=== PATIENT | female | born 1950 | race Caucasian/White ===

== ENCOUNTER 2017-09-27 23:36 | Observation (INO) | payer MEDICARE ==
--- NOTE | 2017-09-27 23:59 | EDM.PDOC ---
ED HPI GENERAL MEDICAL PROBLEM - General Chief Complaint: Chest Pain Stated Complaint: PT HAS CHEST PAINS Time Seen by Provider: 09/27/17 23:43 - History of Present Illness INITIAL COMMENTS - FREE TEXT/NARRATIVE: HISTORY AND PHYSICAL: History of present illness: Patient is 67-year-old female with history of valvular heart disease he also had coronary artery stent placed proximally 1 month prior to arrival presents with concern of left-sided chest tightness started approximately 4 hours prior to arrival without associated shortness of breath palpitations diaphoresis nausea or vomiting she states this is different in quality to the pain she had prior with her stent placement. Review of systems: As per history of present illness and below otherwise all systems reviewed and negative. Past medical history: As per history of present illness and as reviewed below otherwise noncontributory. Surgical history: As per history of present illness and as reviewed below otherwise noncontributory. Social history: No reported history of drug or alcohol abuse. Family history: As per history of present illness and as reviewed below otherwise noncontributory. Physical exam: HEENT: Atraumatic, normocephalic, pupils reactive, negative for conjunctival pallor or scleral icterus, mucous membranes moist, throat clear, neck supple, nontender, trachea midline. Lungs: Clear to auscultation, breath sounds equal bilaterally, chest nontender. Heart: S1S2, regular, negative for clicks, rubs, or JVD. Abdomen: Soft, nondistended, nontender. Negative for masses or hepatosplenomegaly. Negative for costovertebral tenderness. Pelvis: Stable nontender. Genitourinary: Deferred. Rectal: Deferred. Extremities: Atraumatic, negative for cords or calf pain. Neurovascular unremarkable. Neuro: Awake, alert, oriented. Cranial nerves II through XII unremarkable. Cerebellum unremarkable. Motor and sensory unremarkable throughout. Exam nonfocal. Diagnostics: CBC CMP troponin PT/INR chest x-ray EKG Therapeutics: IV O2 monitor aspirin 324 mg nitroglycerin sublingual Impression: #1 chest pain #2 history of coronary artery disease #3 history of valvular heart disease Definitive disposition and diagnosis as appropriate pending reevaluation and review of above. chest Pain Score (Numeric/FACES): 7 - Related Data Allergies Allergy/AdvReac Type Severity Reaction Status Date / Time No Known Allergies Allergy Verified 09/27/17 23:45 Home Meds: Home Meds Aspirin 81 mg PO DAILY 09/27/17 [History] Levothyroxine [Synthroid] 100 mcg PO DAILY 09/27/17 [History] ED ROS GENERAL - Review of Systems Review Of Systems: ROS reveals no pertinent complaints other than HPI. ED EXAM, GENERAL - Physical Exam Exam: See Below (See dictation) Course - Vital Signs Last Recorded V/S: Last Vital Signs Temp 36.0 C 09/27/17 23:41 Pulse 60 09/28/17 00:32 Resp 18 09/28/17 00:32 BP 102/60 09/28/17 00:32 Pulse Ox 98 09/28/17 00:32 - Orders/Labs/Meds Orders: Active Orders 24 hr Category Date Time Status EKG Documentation Completion [RC] STAT Care 09/28/17 00:10 Active Chest 1V Frontal [CR] Stat Exams 09/28/17 00:09 Taken Nitroglycerin [Nitrostat] Med 09/28/17 00:11 Active 0.4 mg SL Q5M PRN Medication Orders Nitroglycerin (Nitrostat) 0.4 mg SL Q5M PRN PRN Reason: Chest Pain Last Admin: 09/28/17 00:23 Dose: 0.4 mg Labs: Laboratory Tests 09/27/17 09/27/17 09/27/17 Range/Units 23:50 23:50 23:50 WBC 5.50 (4.0-11.0) K/uL RBC 4.25 L (4.30-5.90) M/uL Hgb 13.9 (12.0-16.0) g/dL Hct 39.9 (36.0-46.0) % MCV 93.9 (80.0-98.0) fL MCH 32.7 H (27.0-32.0) pg MCHC 34.8 (31.0-37.0) g/dL RDW Std Deviation 44.0 (28.0-62.0) fl RDW Coeff of Coleman 13 (11.0-15.0) % Plt Count 224 (150-400) K/uL MPV 10.50 (7.40-12.00) fL Neut % (Auto) 38.9 L (48.0-80.0) % Lymph % (Auto) 42.7 H (16.0-40.0) % [place] % (Auto) 14.4 (0.0-15.0) % Eos % (Auto) 3.3 (0.0-7.0) % Baso % (Auto) 0.7 (0.0-1.5) % Neut # (Auto) 2.1 (1.4-5.7) K/uL Lymph # (Auto) 2.4 (0.6-2.4) K/uL [place] # (Auto) 0.8 (0.0-0.8) K/uL Eos # (Auto) 0.2 (0.0-0.7) K/uL Baso # (Auto) 0.0 (0.0-0.1) K/uL Nucleated RBC % 0.0 /100WBC Nucleated RBCs # 0 K/uL INR 0.92 Sodium 140 (136-145) mmol/L Potassium 3.6 (3.5-5.1) mmol/L Chloride 105 (98-107) mmol/L Carbon Dioxide 25.8 (21.0-32.0) mmol/L BUN 20 H (7.0-18.0) mg/dL Creatinine 0.9 (0.6-1.0) mg/dL Est Cr Clr Drug Dosing TNP Estimated GFR (MDRD) > 60.0 ml/min Glucose 121 H (74-106) mg/dL Calcium 9.1 (8.5-10.1) mg/dL Total Bilirubin 0.2 (0.2-1.0) mg/dL AST 24 (15-37) IU/L ALT 34 (14-63) IU/L Alkaline Phosphatase 92 (46-116) U/L Troponin I < 0.050 (0.000-0.056) ng/mL Total Protein 6.8 (6.4-8.2) g/dL Albumin 3.7 (3.4-5.0) g/dL Globulin 3.1 (2.0-3.5) g/dL Albumin/Globulin Ratio 1.2 L (1.3-2.8) Meds: Medications Generic Name Dose Route Start Last Admin Trade Name Freq PRN Reason Stop Dose Admin Nitroglycerin 0.4 mg 09/28/17 00:11 09/28/17 00:23 Nitrostat SL 0.4 mg Q5M PRN Administration Chest Pain Departure - Departure Time of Disposition: 01:13 Disposition: Refer to Observation Condition: Good Clinical Impression: Chest pain - Discharge Information Referrals: PCP,None [Primary Care Provider] - Forms: ED Department Discharge - My Orders Last 24 Hours: My Active Orders 09/28/17 00:09 Chest 1V Frontal [CR] Stat 09/28/17 00:10 EKG Documentation Completion [RC] STAT 09/28/17 00:11 Nitroglycerin [Nitrostat] 0.4 mg SL Q5M PRN - Assessment/Plan Last 24 Hours: My Active Orders 09/28/17 00:09 Chest 1V Frontal [CR] Stat 09/28/17 00:10 EKG Documentation Completion [RC] STAT 09/28/17 00:11 Nitroglycerin [Nitrostat] 0.4 mg SL Q5M PRN
[2017-09-28] MEDS ORDERED: Nitroglycerin 0.4 MG Tab.SL SL PRN (00:11)
[2017-09-28 00:43] LABS: CHLORIDE,CL 105 mmol/L (98-107); SODIUM,NA 140 mmol/L (136-145)
[2017-09-28] MEDS ORDERED: Acetaminophen 325 MG Tab PO PRN (02:39)
[2017-09-28] MEDS ORDERED: Levothyroxine 100 MCG Tab PO SCH (07:30)
[2017-09-28] MEDS ORDERED: Aspirin 81 MG Tab.Chew PO SCH (09:00)
--- NOTE | 2017-09-28 09:12 | PCM.HP ---
H&P History of Present Illness - General Date of Service: 09/28/17 Admit Problem/Dx: Admission Diagnosis/Problem Admission Diagnosis/Problem Chest pain Source of Information: Patient - History of Present Illness Initial Comments - Free Text/Narative: This is a 67-year-old female that is presenting with acute chest pain radiating to the back for one day. Patient states that the pain is more of a pressure type sensation that has been ongoing over the last day for several hours. Patient became worried that she does have a significant cardiovascular history with a stent placement occurring one year ago. Patient is visiting her children , she is from [facility] where she does have a mileage clerk whom she is seeing on October 15 as well as a primary care physician. Patient denies doing any strenuous activity yesterday, she did state she had some mild shortness of breath but that possibly may been due to the anxiety and worried that she started to have sense of her chest pain was not going away and her recent history of stent placement. Patient presently does not have any chest pain, no shortness of breath, no back pain, no nausea/vomiting/diarrhea/constipation. Patient denies any sort of fevers, chills or infectious type process. Discharge Summary Date of admission: 09/28/2017 Date of discharge: 09/28/2017 Admitting diagnosis: #1. Acute chest pain/pressure radiating to the back lasting for several hours in the setting of a cardiac stent placement 1 year prior etiologies to consider include acute coronary syndrome versus gastroesophageal reflux disease versus musculoskeletal versus anxiety versus pneumonia #2. Significant past medical history of stent placement 1 year prior and prior MA #3. #4. #5. Discharge diagnoses: #1. Acute chest pain/pressure now resolved, acute coronary syndrome ruled out, troponins negative 3, most likely etiology is musculoskeletal with an anxiety component. #2. Significant past medical history of stent placement 1 year prior and prior MA #3. #4. #5. Consultations: None Procedures: None Hospitalization course: Patient was admitted overnight due to chest pain related etiology in the setting of a significant CAD history with stent placement and prior MA. Patient was put on cardiac monitoring, troponins were drawn 3, CBC, CMP was evaluated, EKG was also assessed. Patient throughout the night had a resolution of her chest pain, her entire admission stay she was stable with no acute cardiac changes, troponins were negative 3, CBC CMP was benign in nature, EKG did not show any new ischemic findings. There was no signs of infectious process such as a pneumonia. Patient was determined to be stable in the a.m. and was subsequently discharged with the instructions to follow-up with her primary care provider when she gets home to [place] on Saturday, as well as get in touch with her mileage clerk home she sees an [place] as well. It is suggested the patient should be assessed for a possible nuclear/exercise stress test once she does return back to [place]. Disposition on discharge: Home Condition on discharge: Stable Discharge medications: Continuation of home medication Follow-up instructions: Follow-up with PCP once patient returns home, follow-up with cardiology once patient returns home. chest Pain Score (Numeric/FACES): 0 - Related Data Allergies/Adverse Reactions: Allergies Allergy/AdvReac Type Severity Reaction Status Date / Time No Known Allergies Allergy Verified 09/27/17 23:45 Home Medications: Home Meds Aspirin 81 mg PO DAILY 09/27/17 [History] Levothyroxine [Synthroid] 100 mcg PO DAILY 09/27/17 [History] Past Medical History Cardiovascular History: Reports: CAD, Other (See Below) Other Cardiovascular History: Leaky Valve [employer] History: Reports: Endocrine/Metabolic History: Reports: Hypothyroidism - Infectious Disease History Infectious Disease History: Reports: Measles - Past Surgical History Cardiovascular Surgical History: Reports: Carotid Stents GI Surgical History: Reports: Cholecystectomy Female Surgical History: Reports: Hysterectomy Musculoskeletal Surgical History: Reports: Joint Replacement Other Musculoskeletal Surgeries/Procedures:: Left knee 4 years ago Social & Family History - Tobacco Use Smoking Status *Q: Never Smoker Years of Tobacco use: 20 Packs/Tins Daily: 0.5 Used Tobacco, but Quit: Yes Month/Year Tobacco Last Used: 1 year ago Second Hand Smoke Exposure: No - Caffeine Use Caffeine Use: Reports: Coffee - Recreational Drug Use Recreational Drug Use: No H&P Review of Systems - Review of Systems: Review Of Systems: ROS reveals no pertinent complaints other than HPI. Exam - Exam Exam: See Below - Vital Signs Vital Signs: Last Vital Signs Temp 36.2 C 09/28/17 08:09 Pulse 58 L 09/28/17 08:09 Resp 18 09/28/17 08:09 BP 135/65 09/28/17 08:09 Pulse Ox 98 09/28/17 08:09 Weight: 68.492 kg - Exam General: Alert, Oriented, Cooperative HEENT: Conjunctiva Clear, Hearing Intact, Mucosa Moist & [place], Pupils Equal, Pupils Reactive Neck: Supple, Trachea Midline Lungs: Clear to Auscultation, Normal Respiratory Effort Cardiovascular: Regular Rate, Regular Rhythm GI/Abdominal Exam: Normal Bowel Sounds, Soft, Non-Tender Back Exam: Normal Inspection, Full Range of Motion Extremities: Normal Inspection, Normal Range of Motion, Non-Tender, No Pedal Edema, Normal Capillary Refill Skin: Warm, Dry, Intact Neurological: Cranial Nerves Intact Neuro Extensive - Mental Status: Alert, Oriented x3, Normal Mood/Affect, Normal Cognition, Memory Intact Neuro Extensive - Motor, Sensory, Reflexes: Normal Gait Psychiatric: Alert, Normal Affect, Normal Mood - Patient Data Lab Results Last 24 hrs: Laboratory Results - last 24 hr 09/27/17 09/27/17 09/27/17 Range/Units 23:50 23:50 23:50 WBC 5.50 (4.0-11.0) K/uL RBC 4.25 L (4.30-5.90) M/uL Hgb 13.9 (12.0-16.0) g/dL Hct 39.9 (36.0-46.0) % MCV 93.9 (80.0-98.0) fL MCH 32.7 H (27.0-32.0) pg MCHC 34.8 (31.0-37.0) g/dL RDW Std Deviation 44.0 (28.0-62.0) fl RDW Coeff of [place] 13 (11.0-15.0) % Plt Count 224 (150-400) K/uL MPV 10.50 (7.40-12.00) fL Neut % (Auto) 38.9 L (48.0-80.0) % Lymph % (Auto) 42.7 H (16.0-40.0) % [place] % (Auto) 14.4 (0.0-15.0) % Eos % (Auto) 3.3 (0.0-7.0) % Baso % (Auto) 0.7 (0.0-1.5) % Neut # (Auto) 2.1 (1.4-5.7) K/uL Lymph # (Auto) 2.4 (0.6-2.4) K/uL [place] # (Auto) 0.8 (0.0-0.8) K/uL Eos # (Auto) 0.2 (0.0-0.7) K/uL Baso # (Auto) 0.0 (0.0-0.1) K/uL Nucleated RBC % 0.0 /100WBC Nucleated RBCs # 0 K/uL INR 0.92 Sodium 140 (136-145) mmol/L Potassium 3.6 (3.5-5.1) mmol/L Chloride 105 (98-107) mmol/L Carbon Dioxide 25.8 (21.0-32.0) mmol/L BUN 20 H (7.0-18.0) mg/dL Creatinine 0.9 (0.6-1.0) mg/dL Est Cr Clr Drug Dosing TNP Estimated GFR (MDRD) > 60.0 ml/min Glucose 121 H (74-106) mg/dL Calcium 9.1 (8.5-10.1) mg/dL Total Bilirubin 0.2 (0.2-1.0) mg/dL AST 24 (15-37) IU/L ALT 34 (14-63) IU/L Alkaline Phosphatase 92 (46-116) U/L Troponin I < 0.050 (0.000-0.056) ng/mL Total Protein 6.8 (6.4-8.2) g/dL Albumin 3.7 (3.4-5.0) g/dL Globulin 3.1 (2.0-3.5) g/dL Albumin/Globulin Ratio 1.2 L (1.3-2.8) 09/28/17 Range/Units 05:58 WBC (4.0-11.0) K/uL RBC (4.30-5.90) M/uL Hgb (12.0-16.0) g/dL Hct (36.0-46.0) % MCV (80.0-98.0) fL MCH (27.0-32.0) pg MCHC (31.0-37.0) g/dL RDW Std Deviation (28.0-62.0) fl RDW Coeff of [place] (11.0-15.0) % Plt Count (150-400) K/uL MPV (7.40-12.00) fL Neut % (Auto) (48.0-80.0) % Lymph % (Auto) (16.0-40.0) % [place] % (Auto) (0.0-15.0) % Eos % (Auto) (0.0-7.0) % Baso % (Auto) (0.0-1.5) % Neut # (Auto) (1.4-5.7) K/uL Lymph # (Auto) (0.6-2.4) K/uL [place] # (Auto) (0.0-0.8) K/uL Eos # (Auto) (0.0-0.7) K/uL Baso # (Auto) (0.0-0.1) K/uL Nucleated RBC % /100WBC Nucleated RBCs # K/uL INR Sodium (136-145) mmol/L Potassium (3.5-5.1) mmol/L Chloride (98-107) mmol/L Carbon Dioxide (21.0-32.0) mmol/L BUN (7.0-18.0) mg/dL Creatinine (0.6-1.0) mg/dL Est Cr Clr Drug Dosing Estimated GFR (MDRD) ml/min Glucose (74-106) mg/dL Calcium (8.5-10.1) mg/dL Total Bilirubin (0.2-1.0) mg/dL AST (15-37) IU/L ALT (14-63) IU/L Alkaline Phosphatase (46-116) U/L Troponin I < 0.050 (0.000-0.056) ng/mL Total Protein (6.4-8.2) g/dL Albumin (3.4-5.0) g/dL Globulin (2.0-3.5) g/dL Albumin/Globulin Ratio (1.3-2.8) Result Diagrams: 09/27/17 23:50 09/27/17 23:50 Problem List Initiated/Reviewed/Updated: Yes Orders Last 24hrs: Active Orders 24 hr Category Date Time Status Patient Status [ADT] Stat ADT 09/28/17 01:14 Active Communication Order [RC] ROUTINE Care 09/28/17 03:02 Active Telemetry Monitoring [Cardiac Monitoring] [RC] . Care 09/28/17 01:26 Active DIRECTED Heart Healthy Diet [DIET] Diet 09/28/17 Breakfast Active Chest 1V Frontal [CR] Stat Exams 09/28/17 00:09 Taken TROPONIN I [CHEM] Q6H Lab 09/28/17 11:50 Ordered Acetaminophen [Tylenol] Med 09/28/17 02:39 Active 650 mg PO Q4H PRN Aspirin Med 09/28/17 09:00 Active 81 mg PO DAILY Levothyroxine [Synthroid] Med 09/29/17 07:30 Active 100 mcg PO ACBREAKFAST Nitroglycerin [Nitrostat] Med 09/28/17 00:11 Active 0.4 mg SL Q5M PRN Medication Orders Acetaminophen (Tylenol) 650 mg PO Q4H PRN PRN Reason: Pain Aspirin (Aspirin) 81 mg PO DAILY JOSH Last Admin: 09/28/17 08:26 Dose: Levothyroxine Sodium (Synthroid) 100 mcg PO ACBREAKFAST JOSH Nitroglycerin (Nitrostat) 0.4 mg SL Q5M PRN PRN Reason: Chest Pain Last Admin: 09/28/17 00:23 Dose: 0.4 mg Assessment/Plan Comment:: This is a 67-year-old female presenting with acute chest pain/pressure radiating to the back lasting for several hours with a significant past medical history of coronary artery disease including stent placement and possible prior MA most likely etiology is anxiety induced chest pain with a musculoskeletal component other etiologies to consider and rule out include acute coronary syndrome, community-acquired pneumonia, and other etiologies including acute pericarditis, cardiac tamponade, aortic aneurysm. Assessment/plan: #1. Acute chest pain/pressure radiating to the back with a significant past medical history of coronary artery disease most likely etiology is musculoskeletal with anxiety component, however acute coronary syndrome must be ruled out -Cardiac monitoring, troponins 3, CBC, CMP in the a.m., EKG evaluation, chest x -ray #2. Significant past medical history of coronary artery disease including a stent placement 1 year prior and prior MA event. Provided the patient is stable, troponins are negative 3, CBC CMP do not show any abnormalities, EKG does not show any acute ischemic event, and chest x-ray rules out any sort of pneumonia, anatomical cardiac abnormality patient shall be discharged home with instructions to follow-up with her primary care provider once she returns to [place], as well as her mileage clerk in [place] for a assessment and possible consideration of a exercise/nuclear stress test. Patient is admitted under observation anticipated length of stay is less than 2 midnights.
[2017-09-29] MEDS ORDERED: Levothyroxine 100 MCG Tab PO SCH (07:30)
--- NOTE | 2017-09-30 10:54 | CR ---
EXAM DATE: 09/28/17 PATIENT'S AGE: 67 Patient: DARCIE VILLEGAS Facility: [place], [place] Site . Site : [id number] Study: XRay Chest [id number]/31/2018 12:24:03 AM Ordering Physician: Lissett Perez Final Report: Indication: Chest pain. SOB Technique: Chest 1 view Comparison: None Findings/Impression: Cardiovascular and mediastinum: Upper limits of normal cardiac size could be related to the portable technique. An unfolded, mildly calcified aorta. Lungs and pleural space: No consolidation or pleural effusions. An apparent 6 millimeter right apical nodular opacity. Followup with nonemergent CT evaluation. Bones and soft tissues: No significant findings. Dictated by Macario Gaming MD @ 09/28/2017 12:36:03 AM Dictated by: Macario Gaming MD @ 09/28/2017 00:36:12 (Electronic Signature) Report Signed by Proxy. GABRIELA
== END 2017-09-28 13:15 | disposition home or self-care (01) ==
LOC: MW.ED 23:36 → MW.MS 09-28 01:14 → MW.ED 09-28 01:41
PROVIDERS: ADMIT Internal Medicine; ATTEND Internal Medicine
DX: R07.89 Other chest pain (principal); I25.2 Old myocardial infarction; I25.10 Atherosclerotic heart disease of native coronary artery without angina pectoris; E03.9 Hypothyroidism, unspecified; Z95.5 Presence of coronary angioplasty implant and graft; Z79.82 Long term (current) use of aspirin; Z79.899 Other long term (current) drug therapy
CPT/HCPCS: 36415; 71045; 80053; 84484; 85025; 85610; 93005; 99285; A9270; 99284; G0378